=== PATIENT | female | born 1990 | race Caucasian/White ===

== ENCOUNTER 2017-08-25 12:24 | Emergency (ER) | payer BC ==
[2017-08-25 13:37] VITALS: BP 124/68
--- NOTE | 2017-08-25 13:47 | UC ---
Skin Complaint HPI - HPI Summary HPI Summary: Tick on BAck for about 4 hours removed Tuesday-- - History of Current Complaint Chief Complaint: UCSkin Time Seen by Provider: 08/25/17 13:45 Stated Complaint: TICK Hx Obtained From: Patient Hx Last Menstrual Period: 08/20/17 ?: No Onset/Duration: Sudden Onset Timing: Constant Onset Severity: Mild Current Severity: None Pain Intensity: 0 Pain Scale Used: 0-10 Numeric Location: Discrete - left scapula Aggravating Factor(s): Nothing Alleviating Factor(s): Nothing Associated Signs & Symptoms: Positive: Negative - Allergy/Home Medications Allergies/Adverse Reactions: Allergies Allergy/AdvReac Type Severity Reaction Status Date / Time Cefaclor [From [facility]] Allergy Severe Rash Verified 08/25/17 13:37 Home Medications: Home Medications Desogestrel-Ethinyl Estradiol [Azurette 0.15-0.02/0.01 mg (20/03)] 1 tab PO BEDTIME 08/25/17 [History Confirmed 08/25/17] Review of Systems Constitutional: Negative Skin: Negative Eyes: Negative ENT: Negative Respiratory: Negative Cardiovascular: Negative Gastrointestinal: Negative Genitourinary: Negative Motor: Negative Neurovascular: Negative Musculoskeletal: Negative Neurological: Negative Psychological: Negative Is Patient Immunocompromised?: No All Other Systems Reviewed And Are Negative: Yes PMH/Surg Hx/FS Hx/Imm Hx Previously Healthy: Yes - Surgical History Surgical History: None - Social History Occupation: Employed Full-time Lives: With Family Alcohol Use: Weekly Substance Use Type: None Smoking Status (MU): Never Smoked Tobacco Physical Exam Triage Information Reviewed: Yes Appearance: Well-Appearing, No Pain Distress, Well-Nourished Vital Signs: Initial Vital Signs Temp 97.3 F 08/25/17 13:34 Pulse 79 08/25/17 13:34 Resp 14 08/25/17 13:34 BP 124/68 08/25/17 13:34 Pulse Ox 100 08/25/17 13:34 Vital Signs Reviewed: Yes Eye Exam: Normal Eyes: Positive: Conjunctiva Clear ENT Exam: Normal ENT: Positive: Normal ENT inspection, Hearing grossly normal. Negative: Nasal congestion, Nasal drainage, Trismus, Muffled/hoarse voice Dental Exam: Normal Neck exam: Normal Neck: Positive: Supple, Nontender Respiratory Exam: Normal Respiratory: Positive: Chest non-tender, No respiratory distress, No accessory muscle use Cardiovascular Exam: Normal Cardiovascular: Positive: RRR, Brisk Capillary Refill Musculoskeletal Exam: Normal Musculoskeletal: Positive: Strength Intact, ROM Intact, No Edema Neurological Exam: Normal Neurological: Positive: Alert, Muscle Tone Normal Psychological Exam: Normal Skin Exam: Normal Course/Dx - Course Course Of Treatment: Educate s/s of Lyme follow with pcp prn - Diagnoses Provider Diagnoses: Tick exposure Discharge - Discharge Plan Condition: Stable Disposition: HOME Patient Education Materials: Tick Bite (ED) Referrals: Safia Upton MD [Medical Doctor] - If Needed
== END 2017-08-25 14:05 | disposition home or self-care (01) ==
LOC: UCCORT 12:24
DX: S20.469A Insect bite (nonvenomous) of unspecified back wall of thorax, initial encounter (principal); W57.XXXA Bitten or stung by nonvenomous insect and other nonvenomous arthropods, initial encounter; Z88.1 Allergy status to other antibiotic agents
CPT/HCPCS: 99211; G0463

== ENCOUNTER 2018-09-07 08:37 | Emergency (ER) | payer SELFPAY ==
[2018-09-07] MEDS ORDERED: Ketorolac INJ* 30 MG/ML 1 ML VIAL IV PUSH ONE (08:46)
[2018-09-07] MEDS ORDERED: NS 0.9% 1000 ML* 1,000 ML IV ONE (08:46)
--- NOTE | 2018-09-07 08:48 | ED ---
Abdominal Pain/Female - HPI Summary HPI Summary: Patient is a 28-year-old female who presents to the emergency department for right lower quadrant abdominal pain. Pain started over the last several days and got worse today. Pain is a sharp stabbing pain and is constant. No modifying factors. Patient states she saw gynecology about 2 days ago and was restarted on oral contraceptives. Patient denies fever, chills, nausea, vomiting, diarrhea, constipation, vaginal discharge or bleeding. She does note bladder pressure. She has no past medical history. Symptoms are moderate in severity. - History of Current Complaint Chief Complaint: EDAbdPain Stated Complaint: LOWER ABD PAIN Time Seen by Provider: 09/07/18 08:45 Hx Obtained From: Patient Hx Last Menstrual Period: 08/20/17 Pain Intensity: 10 Allergies/Adverse Reactions: Allergies Allergy/AdvReac Type Severity Reaction Status Date / Time cefaclor [From [facility]] Allergy Severe Rash Verified 09/07/18 08:51 PMH/Surg Hx/FS Hx/Imm Hx Previously Healthy: Yes Infectious Disease History: No Infectious Disease History: Denies: Traveled Outside the [place] in Last 30 Days - Family History Known Family History: Positive: Non-Contributory - Social History Occupation: Employed Full-time Lives: With Family Alcohol Use: Weekly Substance Use Type: Reports: None Smoking Status (MU): Never Smoked Tobacco Review of Systems Constitutional: Negative Negative: Fever, Chills Positive: Abdominal Pain. Negative: Vomiting, Diarrhea, Nausea Negative: burning, dysuria, discharge, frequency, flank pain, hematuria Neurological: Negative All Other Systems Reviewed And Are Negative: Yes Physical Exam Triage Information Reviewed: Yes Vital Signs On Initial Exam: Initial Vitals Temp Pulse Resp BP Pulse Ox 97.8 F 75 18 121/90 98 09/07/18 08:38 09/07/18 08:38 09/07/18 08:38 09/07/18 08:38 09/07/18 08:38 Vital Signs Reviewed: Yes Appearance: Positive: Pain Distress - Pt. lying on bed, appears in pain but nontoxic. Skin: Positive: Warm, Dry Head/Face: Positive: Normal Head/Face Inspection Eyes: Positive: Normal, EOMI Neck: Positive: Supple Respiratory/Lung Sounds: Positive: Clear to Auscultation, Breath Sounds Present Cardiovascular: Positive: Normal, RRR Abdomen Description: Positive: Other: - Abdomen is soft with pain to the right lower quadrant. No rebound tenderness or guarding. No rigidity Neurological: Positive: Normal, CN Intact II-III Psychiatric: Positive: Affect/Mood Appropriate Diagnostics - Vital Signs Vital Signs Temp Pulse Resp BP Pulse Ox 09/07/18 08:38 97.8 F 75 18 121/90 98 - Laboratory Result Diagrams: 09/07/18 08:55 09/07/18 08:55 Lab Statement: Any lab studies that have been ordered have been reviewed, and results considered in the medical decision making process. Abdominal Pain Fem Course/Dx - Course Course Of Treatment: Patient present with several days of right lower quadrant abdominal pain. She is afebrile with stable vital signs. She has benign abdominal exam. Basic blood work and urinalysis ordered. IV Toradol given for pain. Labs are unremarkable including negative and urinalysis. Ultrasound shows a right ovarian cysts at 4.8 cm with good flow to the ovary. U /S read per radiology: IMPRESSION: Enlarged right ovary with a cyst in the right ovary measuring up to 4.8 cm. with low-level internal echoes. Doppler interrogation demonstrates flow in the right. ovarian parenchyma. Follow-up exam is suggested in a different phase of the patient's. menstrual cycle. On reexamination patient's pain has improved and she is resting more comfortably. Results were discussed. Not concerned for appendicitis at this time given normal WBC and no associated symptoms and pain as been ongoing for several days. Patient given a short prescription for hydrocodone and Motrin. BOX CLOSING MACHINE OPERATOR was queried and no red flags noted. Advised patient to call her assistant floor covering printer today for close follow-up appointment. To return to the ER for increased pain, fever , vomiting or if concerned. Patient understands and agrees with plan. - Diagnoses Differential Diagnosis: Positive: Appendicitis, Bowel Obstruction, Constipation , Ectopic , Pelvic Inflammatory Disease, , Renal Colic, Urinary Tract Infection Provider Diagnoses: Ovarian cyst Discharge - Sign-Out/Discharge Documenting (check all that apply): Patient Departure - Discharge Plan Condition: Good Disposition: HOME Prescriptions: Hydrocodone/Acetaminophen [Hydrocodone/Acetaminophen 5-325 mg] 1 tab PO Q6HR # 12 tab MDD 4tablets Ibuprofen TAB* [Motrin TAB* 800 MG] 800 mg PO Q8H #20 tab Patient Education Materials: Ovarian Cyst (ED) Referrals: Charlee Church MD [Medical Doctor] - [place],Swapna, PA [Primary Care Provider] - Additional Instructions: Call your ASSEMBLY LINE WORKER today to schedule a follow up appointment Pain medication as directed Apply warm compress Return to ER for increased pain, fever, vomiting or if concerned - Billing Disposition and Condition Condition: GOOD Disposition: Home
[2018-09-07 09:08] LABS: ABS Basophils 0 10^3/ul (0-0.2); ABS Eosinophils 0 10^3/ul (0-0.6); ABS Monocytes 0.4 10^3/ul (0-0.8); ABS Neutrophils 4.6 10^3/ul (1.5-7.7); ABS Nucleated RBC 0 10^3/ul; Eosinophil % 0.5 % (0-6); Hematocrit 39 % (35-47); Hemoglobin 13.2 g/dl (12.0-16.0); Mean Corpuscular HGB Conc 34 g/dl (31-36); Mean Corpuscular Hemoglobin 31 pg (27-31); Mean Corpuscular Volume 91 fL (80-97); Mean Platelet Volume 8.5 fL (7.4-10.4); Nucleated Red Blood Cells % 0; Platelet Count 235 10^3/ul (150-450); Red Blood Count 4.28 10^6/ul (4.00-5.40); Red Cell Distribution Width 13 % (10.5-15); White Blood Count 7.1 10^3/ul (3.5-10.8)
--- OUTSIDE RECORDS SUMMARY | 2018-09-07 09:08 | XMS REPORT ---
:1990 External Reference #:[id number] Author Organization [facility] Address [address] [place] [id number] Phone [phone] Care Team Providers Name Role Phone Swapna Tracy RPA Primary Care Physician Unavailable Payers Type Date Identification Numbers Payment Provider Subscriber Commercial Policy Number: [id number] [facility] Elda Rodríguez PayID: [id number] [address] [place] [address] Problems Description No Information Social History Type Date Description Comments Lives With Male Partner ETOH Use Occasionally consumes alcohol Smoking Patient is a former smoker Exercise Type/Frequency Exercises regularly Allergies, Adverse Reactions, Alerts Date Description Reaction Status Severity Comments 09/05/2018 Cefaclor hives active Medications Medication Date Status Form Strength Qnty SIG Indications Ordering Provider Flovent HFA Active Aerosol 44mcg/Act use 2 Unknown 0 puffs twice daily Vital Signs Date Vital Result Comment 09/05/2018 Height 68 inches 5'8" Weight 158.00 lb Heart Rate 82 /min BP Systolic 122 mmHg BP Diastolic 80 mmHg O2 % BldC Oximetry 98 % BMI (Body Mass Index) 24.0 kg/m2 Last Menstrual Period [id number] Results Test Date Test Result H/L Range Note Laboratory test finding 09/05/2018 Cytology <pending> Procedures Description No Information Plan of Care 09/05/2018 - Natalie Boyce MDR10.31 Right lower quadrant painFollow up:Please schedule follow up appt after sonogram to review results.Z12.4 Encounter for screening for malignant neoplasm of cervix
[2018-09-07 11:30] VITALS: BP 0/0
[2018-09-07 12:02] LABS: Urine Appearance Clear; Urine Blood Negative (Negative); Urine Color Straw; Urine Ketones 1+ (Negative); Urine Protein Negative (Negative); Urine Urobilinogen Negative (Negative)
== END 2018-09-07 11:27 | disposition home or self-care (01) ==
LOC: ED 08:37
DX: N83.201 Unspecified ovarian cyst, right side (principal)
CPT/HCPCS: 36415; 76830; 80053; 81003; 84702; 85025; 96361; 96374; 99283; J1885

== ENCOUNTER 2021-05-31 08:15 | Inpatient (IN) ==
[2021-05-31] MEDS ORDERED: Lactated Ringers 1000 ml BAG 1,000 ML IV ONE (09:07)
[2021-05-31] MEDS ORDERED: Albuterol HFA INHALER 8 gm MDI INH PRN (09:13)
[2021-05-31] MEDS ORDERED: Morphine PF AMP (0.5MG/ML) 5 MG/10 ML AMP ONE ×2 (09:40→10:29)
[2021-05-31] MEDS ORDERED: fentaNYL 100 mcg/2 ml 50 MCG/ML VIAL ONE ×2 (09:41→10:29)
[2021-05-31] MEDS ORDERED: Clindamycin 900 MG/D5W BAG 900 MG/50 ML BAG IVPB ONE (09:51)
[2021-05-31 09:54] LABS: ABS Eosinophils 0.1 10^3/ul (0-0.6); ABS Lymphocytes 2.7 10^3/ul (1.0-4.8); ABS Monocytes 0.5 10^3/ul (0-0.8); ABS Neutrophils 5.5 10^3/ul (1.5-7.7); Eosinophil % 0.6 %; Hematocrit 36 % (35-47); Hemoglobin 12.1 g/dL (12.0-16.0); Lymphocyte % 30.8 %; Mean Corpuscular HGB Conc 33 g/dL (31-36); Mean Corpuscular Hemoglobin 29 pg (27-31); Mean Corpuscular Volume 86 fL (80-97); Mean Platelet Volume 9.6 fL (7.4-10.4); Nucleated Red Blood Cells % 0.1; Platelet Count 243 10^3/uL (150-450); Red Blood Count 4.22 10^6 /uL (3.70-4.87); Red Cell Distribution Width 13 % (10-15); White Blood Count 8.8 10^3/uL (3.5-10.8)
[2021-05-31] MEDS ORDERED: Gentamicin ADULT 400 MG in NS 0.9% 100 ml BAG 100 ML IVPB ONE (10:00)
[2021-05-31] MEDS ORDERED: Phenylephrine 40 mcg/mL 10mL (400mcg) SYRINGE ONE (10:35)
[2021-05-31] MEDS ORDERED: Sodium Citrate/Citric Acid LIQ 15 ML UDC ONE (10:35)
[2021-05-31] MEDS ORDERED: Ondansetron 4 mg VIAL 2 MG/ML 2 ml VIAL ONE (10:35)
[2021-05-31] MEDS ORDERED: Oxytocin 10 UNITS/ML 1 ML VIAL ONE ×2 (11:35→12:15)
[2021-05-31] MEDS ORDERED: Lidocaine 2% PF 5 ML VIAL ONE (11:53)
[2021-05-31] MEDS ORDERED: fentaNYL 100 mcg/2 ml 50 MCG/ML VIAL IV PRN (12:02)
[2021-05-31] MEDS ORDERED: Acetaminophen IV 1 GM/100ML 100 ML IV ONE (12:02)
[2021-05-31] MEDS ORDERED: Metoclopramide 5 MG/ML VIAL (10 mg) IV PRN (12:02)
[2021-05-31] MEDS ORDERED: Naloxone 0.4 mg VIAL 0.4 mg/ml 1 ml VIAL IV PRN ×2 (12:02→12:04)
[2021-05-31] MEDS ORDERED: Naloxone 4 mg VIAL (10 ml) 2 MG in NS 0.9% 250 ml 250 ML IV PRN (12:04)
[2021-05-31] MEDS ORDERED: oxyCODONE/Acetamin 5/325 mg TAB PO PRN (12:04)
[2021-05-31 12:11] LABS: Urine Appearance Clear; Urine Bilirubin Negative (Negative); Urine Blood Negative (Negative); Urine Color Straw; Urine Glucose Negative (Negative); Urine Ketones Negative (Negative); Urine Nitrite Negative (Negative); Urine Protein Negative (Negative); Urine Specific Gravity 1.006 (1.002-1.030); Urine Urobilinogen Negative (Negative)
[2021-05-31] MEDS ORDERED: RHO D Immune Globulin (HUMAN) 300 MCG = 1,500 I.U. INJ IM PRN (12:20)
[2021-05-31] MEDS ORDERED: Glycerin ADULT 2.4 gm SUPP PR PRN (12:20)
[2021-05-31] MEDS ORDERED: Dibucaine 1% OINT 28.35 GM TUBE PR PRN (12:20)
[2021-05-31] MEDS ORDERED: Witch Hazel PAD JAR TOPICAL PRN (12:20)
[2021-05-31 12:30] LABS: Urine Benzodiazepine Screen None Detected (None Detect); Urine Cannabinoids Screen None Detected (None Detect); Urine Opiates Screen None Detected (None Detect)
[2021-05-31] MEDS ORDERED: Lactated Ringers 1000 ml BAG 1,000 ML IV SCH (13:00)
[2021-06-01 06:57] LABS: ABS Monocytes 0.3 10^3/ul (0-0.8); ABS Neutrophils 7.1 10^3/ul (1.5-7.7); Eosinophil % 0.3 %; Hematocrit 29 % (35-47); Hemoglobin 10.1 g/dL (12.0-16.0); Lymphocyte % 21.5 %; Mean Corpuscular HGB Conc 34 g/dL (31-36); Mean Corpuscular Hemoglobin 29 pg (27-31); Mean Corpuscular Volume 85 fL (80-97); Mean Platelet Volume 8.8 fL (7.4-10.4); Platelet Count 182 10^3/uL (150-450); Red Blood Count 3.43 10^6 /uL (3.70-4.87); Red Cell Distribution Width 13 % (10-15); White Blood Count 9.5 10^3/uL (3.5-10.8)
[2021-06-03 08:09] VITALS: BP 108/73
== END 2021-06-03 11:32 | disposition home or self-care (01) | DRG 788 ==
LOC: MCHOBOUT 08:15 → MCHOB 09:04
PROVIDERS: ADMIT Obstetrics & Gynecology; ATTEND Obstetrics & Gynecology